=== PATIENT | female | born 1960 | race Caucasian/White ===

== ENCOUNTER 2018-05-08 05:50 | Day surgery (SDC) | payer OTHER ==
[~2018-05-08] VITALS: Ht 170.2 cm; Wt 50.9 kg
[~2018-05-08 05:50] MED LIST: SODIUM CHLORIDE 0.9% 1,000 ML IV ONE
[2018-05-08] MEDS ORDERED: PROPOFOL 1% 20 ML VIAL IVP ONE (05:51)
[2018-05-08] MEDS ORDERED: KETAMINE HCL 50 MG/ML 10 ML VIAL IVP ONE (05:51)
[2018-05-08] MEDS ORDERED: EPHEDrine SULFATE 50 MG/ML VIAL IM ONE (05:51)
[2018-05-08] MEDS ORDERED: ONDANSETRON HCL 4 MG/2 ML VIAL IVP ONE (05:51)
[2018-05-08] MEDS ORDERED: LIDOCAINE/PF 2% 5 ML VIAL IM ONE (05:51)
[2018-05-08] MEDS ORDERED: DEXAMETHASONE SOD PHOS 4 MG/ML VIAL IVP ONE (05:51)
[2018-05-08] MEDS ORDERED: MIDAZOLAM HCL 2 MG/2 ML VIAL IVP ONE (05:51)
[2018-05-08] MEDS ORDERED: SODIUM CHLORIDE 0.9% 1,000 ML IV ONE ×3 (06:19→12:30)
[2018-05-08] MEDS ORDERED: LORazepam 2 MG/ML VIAL IVP PRN (07:00)
[2018-05-08] MEDS ORDERED: PROPOFOL 1000 MG/ISO-OSM 100 ML IV ONE (07:05)
[2018-05-08] MEDS ORDERED: SODIUM BICARBONATE 50 MEQ/50 ML VIAL ONE (07:30)
[2018-05-08] MEDS ORDERED: LIDOCAINE/PF 1% 30 ML VIAL ONE (07:30)
[2018-05-08] MEDS ORDERED: HEPARIN SODIUM 1000 UNITS/NS 1,000 ML ONE (07:30)
[2018-05-08] MEDS ORDERED: IOHEXOL 300 MG/ML 100 ML VIAL ONE ×2 (07:30→10:22)
[2018-05-08] MEDS ORDERED: VERAPAMIL HCL 2.5 MG/ML 2 ML VIAL ONE (07:31)
[2018-05-08] MEDS ORDERED: NITROGLYCERIN 50 MG/D5% WATER 250 ML ONE (07:32)
[2018-05-08 07:38] LABS: BASOPHILS % (AUTO) 0.8 % (0.0-2.0); EOSINOPHILS % (AUTO) 1.4 % (1.0-6.0); HEMATOCRIT 32.2 % (36-46); HEMOGLOBIN 10.5 g/dL (12.0-16.0); LYMPHOCYTES # (AUTO) 1.5 K/uL (1.0-4.8); LYMPHOCYTES % (AUTO) 21.1 % (22.0-44.0); MEAN CORPUSCULAR HEMOGLOBIN 27.1 pg (26.0-34.0); MEAN CORPUSCULAR HGB CONC 32.7 G/dL (31.0-37.0); MEAN CORPUSCULAR VOLUME 83 fL (80-100); MONOCYTES # (AUTO) 0.5 K/uL (0.1-1.0); MONOCYTES % (AUTO) 7.3 % (2.0-9.0); NEUTROPHILS # (AUTO) 4.9 K/uL (1.8-7.7); NEUTROPHILS % (AUTO) 69.4 % (40.0-70.0); PLATELET COUNT (AUTO) 355 K/uL (150-450); RED BLOOD CELL COUNT(AUTO) 3.88 MIL/uL (4.00-5.20); RED CELL DISTRIBUTION WIDTH 17.8 % (11.5-14.5)
[2018-05-08 07:50] VITALS: BP 107/66
[2018-05-08 07:56] LABS: ALANINE AMINOTRANSFERASE 20 U/L (12-78); ALBUMIN 2.6 g/dL (3.4-5.0); ALKALINE PHOSPHATASE 99 U/L (46-116); ANION GAP 9 mmol/L (8-16); ASPARTATE AMINOTRANSFERASE 52 U/L (15-37); CALCIUM, TOTAL 8.6 mg/dL (8.8-10.5); CARBON DIOXIDE 26 mmol/L (22-29); CHLORIDE 106 mmol/L (98-107); CREATININE 0.62 mg/dL (0.60-1.30); GLOMERULAR FILTR. RATE CALC > 60 mL/min (>60); GLUCOSE,RANDOM 71 mg/dL (70-110); POTASSIUM 4.2 mmol/L (3.5-5.1); SODIUM SERUM 141 mmol/L (136-145); TOTAL PROTEIN, SERUM 6.9 g/dL (6.4-8.2); UREA NITROGEN, BLOOD 15 mg/dL (7-18)
[2018-05-08] MEDS ORDERED: HEPARIN SODIUM,PORCINE 1,000 UNITS/ML 10 ML VIAL ONE (07:57)
[2018-05-08 08:09] LABS: BILIRUBIN,TOTAL 0.1 mg/dL (0.1-1.0)
[2018-05-08 08:58] VITALS: BP 94/49
[2018-05-08] MEDS ORDERED: HEPARIN SODIUM 1000 UNITS/NS 1,000 ML IARTER ONE (09:07)
[2018-05-08] MEDS ORDERED: LIDOCAINE 1% 30 ML/SOD BICARB 8.4% 4 ML SQ ONE (09:15)
[2018-05-08] MEDS ORDERED: NITROGLYCERIN/D5W 50 MG/250 ML IV BOTTLE IARTER ONE (09:15)
[2018-05-08] MEDS ORDERED: HEPARIN SODIUM,PORCINE 1,000 UNITS/ML 10 ML VIAL IARTER ONE (09:15)
[2018-05-08] MEDS ORDERED: IOHEXOL 300 MG/ML 100 ML VIAL ICOR ONE (09:15)
[2018-05-08] MEDS ORDERED: VERAPAMIL HCL 2.5 MG/ML 2 ML VIAL IARTER ONE (09:15)
[2018-05-08] MEDS ORDERED: HYDROmorphone 2 MG/ML SYRINGE IVP ONE (12:00)
[2018-05-08] MEDS ORDERED: PROMETHAZINE HCL 25 MG TABLET PO ONE (12:30)
[2018-05-08] MEDS ORDERED: HYDROmorphone 2 MG/ML SYRINGE ONE (13:02)
[2018-05-08] MEDS ORDERED: SODIUM CHLORIDE 0.9% 500 ML IV ONE ×2 (13:12→13:30)
[2018-05-08] MEDS ORDERED: OxyCODONE HCL/ACETAMINOPHEN 10-325 MG TABLET PO ONE ×2 (13:15→14:15)
== END 2018-05-08 14:55 | disposition home or self-care (01) ==
LOC: SURGERY 05:50 → EDSTATUS 07:30 → SURGERY 14:55
PROVIDERS: ATTEND Radiology Diagnostic Radiology
DX: C50.912 Malignant neoplasm of unspecified site of left female breast (principal); Z17.0 Estrogen receptor positive status [ER+]; F17.210 Nicotine dependence, cigarettes, uncomplicated; R94.31 Abnormal electrocardiogram [ECG] [EKG]; Z98.890 Other specified postprocedural states; Z72.89 Other problems related to lifestyle
CPT/HCPCS: 36215; 36216; 36415; 37243; 75710; 75726; 75756; 76000; 76937; 80053; 85025; 93005; C1769; C1887; C1892; J0690; J1100; J1170; J1644 ×2; J2250; J2405; J2704 ×2; J3490 ×7; J7030; J7040; Q9967; 36245; 75898

== ENCOUNTER 2018-05-22 06:20 | Day surgery (SDC) | payer OTHER ==
[~2018-05-22] VITALS: Ht 170.2 cm; Wt 50.9 kg
[~2018-05-22 06:20] MED LIST changes: +CeFAZolin 2 GM/DEXTROSE 50 ML IV ONE; +LORazepam 2 MG/ML VIAL IVP PRN; +LORazepam 2 MG/ML VIAL ONE
[2018-05-22] MEDS ORDERED: FentaNYL CITRATE-PF 100 MCG/2 ML VIAL IVP ONE (06:21)
[2018-05-22] MEDS ORDERED: SUCCINYLCHOLINE CHLORIDE 20 MG/ML 10 ML VIAL IVP ONE (06:21)
[2018-05-22] MEDS ORDERED: PROPOFOL 1% 20 ML VIAL IVP ONE (06:21)
[2018-05-22] MEDS ORDERED: MIDAZOLAM HCL 2 MG/2 ML VIAL IVP ONE (06:21)
[2018-05-22] MEDS ORDERED: ONDANSETRON HCL 4 MG/2 ML VIAL IVP ONE (06:21)
[2018-05-22] MEDS ORDERED: DEXAMETHASONE SOD PHOS 4 MG/ML VIAL IVP ONE (06:21)
[2018-05-22] MEDS ORDERED: LIDOCAINE/PF 2% 5 ML VIAL IM ONE (06:21)
[2018-05-22] MEDS ORDERED: GELATIN SPONGE,ABSORBABLE 12-7 MM TP ONE ×3 (07:21→10:20)
[2018-05-22] MEDS ORDERED: LIDOCAINE/PF 1% 30 ML VIAL ONE (07:21)
[2018-05-22] MEDS ORDERED: CeFAZolin 2 GM/DEXTROSE 50 ML IV ONE (07:30)
[2018-05-22 07:43] LABS: EOSINOPHILS % (AUTO) 1.7 % (1.0-6.0); HEMATOCRIT 29.7 % (36-46); HEMOGLOBIN 9.8 g/dL (12.0-16.0); LYMPHOCYTES # (AUTO) 1.2 K/uL (1.0-4.8); LYMPHOCYTES % (AUTO) 17.5 % (22.0-44.0); MEAN CORPUSCULAR HEMOGLOBIN 27.1 pg (26.0-34.0); MEAN CORPUSCULAR HGB CONC 32.9 G/dL (31.0-37.0); MEAN CORPUSCULAR VOLUME 83 fL (80-100); MONOCYTES # (AUTO) 0.5 K/uL (0.1-1.0); MONOCYTES % (AUTO) 7.6 % (2.0-9.0); NEUTROPHILS # (AUTO) 5.1 K/uL (1.8-7.7); NEUTROPHILS % (AUTO) 72.2 % (40.0-70.0); PLATELET COUNT (AUTO) 462 K/uL (150-450); RED CELL DISTRIBUTION WIDTH 16.5 % (11.5-14.5)
[2018-05-22 07:59] LABS: ALANINE AMINOTRANSFERASE 18 U/L (12-78); ALBUMIN 2.4 g/dL (3.4-5.0); ALKALINE PHOSPHATASE 86 U/L (46-116); ANION GAP 8 mmol/L (8-16); ASPARTATE AMINOTRANSFERASE 32 U/L (15-37); BILIRUBIN,TOTAL 0.2 mg/dL (0.1-1.0); CALCIUM, TOTAL 8.6 mg/dL (8.8-10.5); CARBON DIOXIDE 29 mmol/L (22-29); CHLORIDE 104 mmol/L (98-107); CREATININE 0.57 mg/dL (0.60-1.30); GLOMERULAR FILTR. RATE CALC > 60 mL/min (>60); GLUCOSE,RANDOM 88 mg/dL (70-110); POTASSIUM 3.9 mmol/L (3.5-5.1); SODIUM SERUM 141 mmol/L (136-145); TOTAL PROTEIN, SERUM 6.7 g/dL (6.4-8.2); UREA NITROGEN, BLOOD 11 mg/dL (7-18)
[2018-05-22] MEDS ORDERED: SODIUM CHLORIDE 0.9% 1,000 ML IV SCH (10:26)
[2018-05-22] MEDS ORDERED: HYDROmorphone 2 MG/ML SYRINGE IVP PRN (10:30)
[2018-05-22] MEDS ORDERED: HYDROmorphone HCL 2 MG TABLET PO ONE (10:30)
[2018-05-22] MEDS ORDERED: OxyCODONE HCL/ACETAMINOPHEN 5-325 MG TABLET PO PRN ×2 (10:30)
[2018-05-22] MEDS ORDERED: HYDROmorphone 2 MG/ML SYRINGE ONE (10:45)
[2018-05-22] MEDS ORDERED: SODIUM CHLORIDE 0.9% 1,000 ML IV ONE (11:25)
[2018-05-22] MEDS ORDERED: HYDROmorphone HCL 2 MG TABLET ONE (12:31)
== END 2018-05-22 14:20 | disposition home or self-care (01) ==
LOC: SDS 06:20 → EDUNIT# 07:30 → SDS 14:20
PROVIDERS: ATTEND Radiology Diagnostic Radiology
DX: N63.20 Unspecified lump in the left breast, unspecified quadrant (principal); Z85.3 Personal history of malignant neoplasm of breast; F17.210 Nicotine dependence, cigarettes, uncomplicated; Z98.890 Other specified postprocedural states
CPT/HCPCS: C2618 ×19; 19105; 99244; J0330; J0690; J1100; J1170; J2060; J2250; J2405; J2704; J3010; J3490; J7030